=== PATIENT | male | born 2005 | race Two or more races ===

== ENCOUNTER 2025-08-25 09:48 | Emergency (ER) | payer MEDICAID, SELFPAY ==
[2025-08-25 09:49] VITALS: BMI 52.9
--- NOTE | 2025-08-25 10:21 | XR_ITS ---
Examination: Abdomen sonogram, Limited Date and time of exam: 08/25/2025 at 10:32 a.m. INDICATION: Epigastric pain vomiting nausea and diarrhea for 2 days Technique: Real-time english scale transabdominal sonographic images of the upper abdomen obtained. Findings: The patient gallbladder is contracted, it is not optimally visualized, but the gallbladder wall is normal and no stones are seen. Common bile duct measures 0.5 cm and is normal in appearance and size. There is diffuse increased echogenicity throughout the liver indicating fatty infiltration the directional color flow is normal in both the portal vein and hepatic veins. No focal lesions can be seen in the liver. Pancreas is obscured by bowel gas. IMPRESSION: 1. There is slightly suboptimal visualization of the gallbladder, since it is partially contracted, and the suboptimal visualization also relates to the patient's morbid obesity 2 significant diffuse fatty infiltration in the liver. 3. No other abnormalities are seen
[2025-08-25 10:22] VITALS: BP 180/114; PULSE 95; RESP 20; TEMP 37.1; O2SAT 97; BMI 59.5
--- NOTE | 2025-08-25 10:25 | EDNOTE_ITS ---
ED Abdominal Pain RME/HPI General Chief Complaint: Abdominal Pain Stated complaint: MID ABD PAIN, DIARRHEA SINCE LAST NIGHT Time seen by provider: 08/25/25 09:51 Arrival date/time: 08/25/25 09:48 20-year-old male with no known medical history presents to the emergency room with a chief complaint of epigastric abdominal pain and diarrhea x 1 day Source: patient Mode of arrival: ambulatory Limitations: no limitations Related Data Allergies Allergy/AdvReac Type Severity Reaction Status Date / Time iron Allergy Verified 08/25/25 09:51 Review of Systems Review of Systems Systems Reviewed: All systems reviewed, normal except as documented Constitutional Constitutional: Reports system reviewed and no additional complaints, except as documented, Denies fatigue, Denies fever(s), Denies headache(s) and Denies weakness Eyes Eyes: Reports system reviewed and no additional complaints, except as documented, Denies blurry vision and Denies change in vision ENT Ears, Nose, Mouth, and Throat: Reports system reviewed and no additional complaints, except as documented, Denies otalgia, Denies headache(s), Denies nasal congestion, Denies throat swelling and Denies vertigo Cardiovascular Cardiovascular: Reports system reviewed and no additional complaints, except as documented, Denies chest pain, Denies dyspnea and Denies dyspnea on exertion Respiratory Respiratory: Reports system reviewed and no additional complaints, except as documented, Denies chest congestion, Denies cough, Denies dyspnea, Denies dyspnea on exertion and Denies wheezing Gastrointestinal Gastrointestinal: Reports system reviewed and no additional complaints, except as documented, Denies abdominal pain, Denies cramping, Denies nausea and Denies vomiting Genitourinary Genitourinary: Reports system reviewed and no additional complaints, except as documented, Denies dysuria and Denies hematuria Musculoskeletal Musculoskeletal: Reports system reviewed and no additional complaints, except as documented and Denies back pain Integumentary/Breasts Skin/Breast: Reports system reviewed and no additional complaints, except as documented and Denies wounds Neurologic Neurologic: Reports system reviewed and no additional complaints, except as documented, Denies confusion, Denies headache(s), Denies lack of coordination, Denies vertigo and Denies weakness Psychiatric Psychiatric: Reports system reviewed and no additional complaints, except as documented, Denies anxiety, Denies confusion, Denies depression, Denies paranoia, Denies suicidal ideation and Denies tactile hallucinations Endocrine Endocrine: Reports system reviewed and no additional complaints, except as documented and Denies fatigue Hematologic/Lymphatic Hematologic/Lymphatic: Reports system reviewed and no additional complaints, except as documented and Denies lymphadenopathy Allergic/Immunologic Allergic/Immunologic: Reports system reviewed and no additional complaints, except as documented, Denies throat swelling, Denies urticaria and Denies wheezing Past Medical History Social History SMOKING STATUS: Never smoker ED Exam General Limitations: Present no limitations General appearance: Present alert and in no apparent distress Head Head exam: Present atraumatic Eye Eye exam: Present normal appearance, PERRL and EOMI ENT ENT exam: Present normal exam, normal oropharynx and mucous membranes moist Neck Neck exam: Present normal inspection, full ROM and trachea midline Chest Chest inspection: Present normal inspection and symmetric chest wall rise Respiratory Respiratory exam: Present normal lung sounds bilaterally Cardiovascular Cardiovascular exam: Present regular rate, normal rhythm and normal heart sounds Abdominal Exam Abdominal exam: Present soft, tenderness and normal bowel sounds; Absent Sepulveda's sign or tenderness at McBurney's Point Abdominal tenderness: Present RUQ, LUQ, epigastrium and moderate; Absent RLQ or LLQ Extremities Exam Extremities exam: Present normal inspection and full ROM Back Exam Back exam: Present normal inspection and full ROM Neurological Exam Neurological exam: Present alert, oriented X3 and CN II-XII intact Psychiatric Psychiatric exam: Present normal affect and normal mood Skin Skin exam: Present warm, dry, intact and normal color Course Quality Measures none Orders Category Date Time Status CT abdomen pelvis wo con Stat Exams 08/25/25 10:43 Completed US gall bladder Stat Exams 08/25/25 10:21 Completed CBC Stat Lab 08/25/25 10:52 Completed CMP [Comprehensive Metabolic Panel] Stat Lab 08/25/25 10:52 Completed Lipase Stat Lab 08/25/25 10:52 Completed UA [Urinalysis] Stat Lab 08/25/25 11:20 Completed Urine Culture Stat Lab 08/25/25 11:20 Received HYDROcodone*/APAP 5/325 [[address] 5/325] Med 08/25/25 10:22 Discontinued 1 tab PO X1 ONE Ondansetron Odt [Zofran Odt] Med 08/25/25 10:22 Discontinued 4 mg PO X1 ONE Vital Signs Vital signs: Vital Signs Temperature 98.7 F 08/25/25 10:22 Pulse Rate 95 08/25/25 10:22 Respiratory Rate 20 08/25/25 10:22 Blood Pressure 180/114 H 08/25/25 10:22 Pulse Oximetry (%) 97 08/25/25 10:22 Oxygen Delivery Method Aerosol Mask 08/25/25 10:22 Abdominal Pain MDM MDM Narrative MDM Narrative:: 20-year-old male with no known medical history presents to the emergency room with a chief complaint of epigastric abdominal pain and diarrhea x 1 day Patient is hemodynamically stable and in no apparent distress Physical examination shows tenderness to the epigastric area of the patient's abdomen. The pain radiates to the right upper quadrant and left upper quadrant. An ultrasound was completed but was negative for any acute findings. A CT of the abdomen and pelvis was then ordered and was also negative for any acute findings. CBC CMP urinalysis were all within normal limits Patient was discharged and educated to follow-up with primary care provider in the next 24 to 48 hours and return to the emergency room for any evidence of worsening signs or symptoms Patient data External records reviewed:: [facility] previous records Clinical information provided by:: patient Social determinants that could affect healthcare access:: none Patient has the following chronic illnesses:: No chronic illness How is presenting disease/condition affected by chronic disease/condition?: no chronic disease Evaluation data The following diagnostics were reviewed and interpreted by me:: lab results and radiology exam(s) Lab and/or radiology exams considered but not ordered:: Labs and radiology exams considered and ordered Interpretation Summary: CT abdomen and pelvis-Findings: In the spine, there is mild disc space narrowing at L3-4 with a diffuse fairly prominent annular disc bulge. At L4-5 there is a very significant diffuse annular disc bulge which significantly indents the ventral margin of the thecal sac and creates some impression on the spinal cord. On this noncontrasted study, no abnormalities are seen in the liver spleen pancreas adrenal glands or kidneys. The para-aortic region appears normal. All of the small bowel loops have normal caliber. There is slight distention with an air-fluid level in the cecum and ascending colon, the appendix is visualized and appears normal. In the pelvis there is fairly prominent dilatation of the distal sigmoid and rectum with an air-fluid level in the rectum. No other abnormalities are seen. IMPRESSION: 1. No abnormalities are seen in the gallbladder, the appendix is visualized and appears normal. 2. There is moderate dilatation of the a sending colon and cecum with a prominent air-fluid level, similar findings are seen in the distal sigmoid colon and rectum. 3. The lower lungs are clear normal, and in all other respects this study is entirely normal. There are some moderate changes of degenerative disc disease in the lower lumbar spine. Medications / Prescriptions Medications or Prescriptions considered but not ordered:: Medication given Medication administrations:: Medication Administration History Discontinued Medications Hydrocodone Bitart/Acetaminophen (Hydrocodone/Apap 5/325 Tablet) 1 tab PO X1 ONE Stop: 08/25/25 10:23 Last Admin: 08/25/25 11:15 Dose: 1 tab Documented By: Ondansetron HCl (Ondansetron Odt 4 Mg Tabrap) 4 mg PO X1 ONE; Protocol Stop: 08/25/25 10:23 Last Admin: 08/25/25 10:43 Dose: 4 mg Documented By: Medication given Consultations Consultation(s) initiated? (list below): No Diagnosis Differential diagnosis abdominal pain: abdominal pain, gastroenteritis, small bowel obstruction and other (Gastritis/cholelithiasis/cholecystitis) Most likely diagnosis given after review of the tests above:: Gastritis Admission Indicated Admission indicated?: not indicated Admission Request Was there a request for admission?: No Disposition Plan Disposition Plan: Discharge Discharge Attestation Discharge Attestation: The patient and all family members were given an opportunity to ask questions and understood the discharge instructions. Discharge instructions specifically effects, indications for sooner follow up or return to the emergency department, and the expected course of current diagnosis. Patient condition: Stable Discharge Plan Plan Patient Disposition: HOME (Self Care) Discharge Disposition comment: Stable Prescriptions/Referrals Referrals: No Primary/Family,Physician [Primary Care Provider] - In 1 week Problem List Clinical Impression: Gastritis Patient/Caregiver Discharge Instructions Education Materials: ED Gastritis (Adult) Additional Instructions: Please follow-up with your primary care provider in the next 24 to 48 hours Your ultrasound and CT of your abdomen were negative for any acute findings Your blood work and urinalysis were within normal limits For any evidence of worsening signs or symptoms return to the emergency room immediately Print Language: [place]i Stand Alone Forms: Giulia Award Info., Work/School Release, Patient Portal Info Letter ALMAS/LILI Supervising Physician ALMAS/LILI Supervising Physician: Dr. Valle
[2025-08-25] MEDS: ONDANSETRON ODT 4 MG TABRAP PO (10:43)
--- NOTE | 2025-08-25 10:43 | XR_ITS ---
Examination: CT abdomen and pelvis without contrast. Coronal 3-D reconstructions. Sagittal 2-D reconstructions. Date and time of exam: 08/25/2025 at 11:07 a.m. CTDI: vol (mGy): 27.7 DLP: (mGycm): 1062 CLINICAL HISTORY: Right upper abdominal quadrant pain Technique: Axial images of the abdomen have been obtained, 3 mm slice thickness Intravenous contrast material has not been administered. Low dose protocols were performed. One or more of the following dose reduction techniques were used; automated exposure control, adjustment of the mA and/or KV according to patient size, use of iterative reconstruction technique. Findings: In the spine, there is mild disc space narrowing at L3-4 with a diffuse fairly prominent annular disc bulge. At L4-5 there is a very significant diffuse annular disc bulge which significantly indents the ventral margin of the thecal sac and creates some impression on the spinal cord. On this noncontrasted study, no abnormalities are seen in the liver spleen pancreas adrenal glands or kidneys. The para-aortic region appears normal. All of the small bowel loops have normal caliber. There is slight distention with an air-fluid level in the cecum and ascending colon, the appendix is visualized and appears normal. In the pelvis there is fairly prominent dilatation of the distal sigmoid and rectum with an air-fluid level in the rectum. No other abnormalities are seen. IMPRESSION: 1. No abnormalities are seen in the gallbladder, the appendix is visualized and appears normal. 2. There is moderate dilatation of the a sending colon and cecum with a prominent air-fluid level, similar findings are seen in the distal sigmoid colon and rectum. 3. The lower lungs are clear normal, and in all other respects this study is entirely normal. There are some moderate changes of degenerative disc disease in the lower lumbar spine.
[2025-08-25] MEDS: HYDROcodone/APAP 5/325 TABLET 1 TAB PO (11:15)
[2025-08-25 11:38] LABS: Alanine Aminotransferase 54 U/L (10-49); Albumin, Serum 4.4 gm/dL (3.5-5.0); Albumin/Globulin Ratio 1.2 (1.2-2.2); Alkaline Phosphatase 104 U/L (46-116); Anion Gap 12 (7-16); Aspartate Amino Transferase 28 U/L (0-34); BUN/Creatinine Ratio 9 Ratio (12-20); Bilirubin,Total 0.4 mg/dL (0.3-1.2); Blood Urea Nitrogen 7 mg/dL (9-23); Calcium 8.8 mg/dL (8.3-10.6); Calcium (Corrected) 8.8 mg/dL (8.5-10.1); Carbon Dioxide 22.3 mMol/L (20.0-31.0); Chloride 107 mMol/L (98-107); Creatinine (Component) 0.8 mg/dL (0.6-1.3); Estimated Creatinine Clearance 262.9 mL/min (>60); Globulin 3.8 gm/dL (2.3-3.5); Glucose 126 mg/dL (74-106); Lipase 27 U/L (12-53); Osmolality,Calculated 281 (275-295); Potassium 3.9 mMol/L (3.4-5.1); Sodium 141 mMol/L (136-145); Total Protein 8.2 gm/dL (5.7-8.2); eGFR > 60 See Note
[2025-08-25 11:43] LABS: Collection Type, Urine Clean Catch
[2025-08-25 11:43] LABS: Basophils # (Auto) 0.0 Thou/mm3 (0.0-0.2); Basophils % (Auto) 0 % (0-2.5); Eosinophils # (Auto) 0.1 Thou/mm3 (0.0-0.5); Eosinophils % (Auto) 1 % (0-10); Hematocrit 41.8 % (41.0-53.0); Hemoglobin 13.3 g/dL (13.5-16.0); Immature Granulocytes Auto 0.02 Thou/mm3 (0.00-0.00); Lymphocytes # (Auto) 1.0 Thou/mm3 (1.0-4.8); Lymphocytes % (Auto) 11 % (10-50); Mean Corpuscular HGB Conc 31.8 g/dl (31.0-37.0); Mean Corpuscular Hemoglobin 27.3 pg (25.0-35.0); Mean Corpuscular Volume 86 fL (80-100); Monocytes # (Auto) 0.7 Thou/mm3 (0.0-0.8); Monocytes % (Auto) 8 % (0-12); Neutrophils # (Auto) 7.1 Thou/mm3 (1.8-7.7); Neutrophils % (Auto) 79 % (37-80); Nucleated Red Blood Cell # 0.00 Thou/mm3 (0.00-0.00); Nucleated Red Blood Cell % 0 /100 WBC (0); Platelet Count 234 Thou/mm3 (140-440); RDW Standard Deviation 43.1 fL (35.1-43.9); Red Blood Count 4.88 Miln/mm3 (4.50-5.90); White Blood Count 8.9 Thou/mm3 (4.5-11.0)
[2025-08-25 11:52] LABS: Bilirubin,Urine Negative (Negative); Blood,Urine Negative (Negative); Clarity,Urine Clear (Clear/Hazy); Color,Urine Lt-Yellow (Lt Yel-Yel); Glucose, Urine Negative (Negative); Ketones,Urine Negative (Negative); Leukocyte Esterase,Urine Negative (Negative); Nitrite,Urine Negative (Negative); PH,Urine 6.0 (5.0-7.0); Protein,Urine Negative (Neg - Trace); RBC,Urine 1 /hpf (0-3); Specific Gravity,Urine 1.022 (1.001-1.035); Squamous Epithelial Cell,Urine < 1 /hpf (0-5); Urobilinogen,Urine Negative mg/dL (0.0-1.0); WBC,Urine 1 /hpf (0-5)
== END 2025-08-25 14:15 | disposition home or self-care (01) ==
PROVIDERS: Nurse Practitioner Family; Emergency Provider Emergency Medicine
DX: K29.70 Gastritis, unspecified, without bleeding (principal)
CPT/HCPCS: 36415; 74176; 76705; 80053; 81001; 83690; 85025; 87086; 99283; Q0162; A9270